=== PATIENT | female | born 1995 | race Caucasian/White ===

== ENCOUNTER 2019-05-24 17:17 | Emergency (ER) | payer OTHER ==
[~2019-05-24] VITALS: Ht 165.1 cm; Wt 94.5 kg
[2019-05-24 20:18] VITALS: BP 146/71
--- NOTE | 2019-05-25 09:17 | REP ---
REASON: Trauma. COMPARISON: None. FINDINGS: The compartments are symmetric and relatively well maintained. There is no acute fracture or destructive osseous lesion. Electronically Signed by Ernesto Aguilar DO 05/25/2019 09:24 A
--- NOTE | 2019-05-25 09:18 | REP ---
ANKLE: REASON: Status post twisting injury. COMPARISON: None. FINDINGS: No acute fracture or destructive osseous lesion. The mortise is intact. Electronically Signed by Ernesto Aguilar DO 05/25/2019 09:24 A
--- NOTE | 2019-05-25 09:18 | REP ---
REASON: Trauma. COMPARISON: None. FINDINGS: Five views of the ribs show no acute fracture or destructive osseous lesion. The accompanying frontal view of the chest shows no cardiomegaly, infiltrates, effusions or pneumothoraces. IMPRESSION: Negative rib series. Electronically Signed by Ernesto Aguilar DO 05/25/2019 09:24 A
--- NOTE | 2019-05-25 09:31 | REP ---
REASON: Pain after trauma. PRIORS: None. There is a mild dextroconvex lumbar curve. Vertebral body height is within normal limits. The disc spaces are mildly narrowed posteriorly at L4-5 and somewhat more universally at L5-S1. There is no spondylolysis or spondylolisthesis. Image quality is somewhat limited due to the patient's body habitus. Pedicles are intact bilaterally. IMPRESSION: Chronic changes, as described above. Electronically Signed by Ernesto Aguilar DO 05/25/2019 09:45 A
== END 2019-05-24 20:23 | disposition home or self-care (01) ==
LOC: M ED 17:17
DX: S93.432A Sprain of tibiofibular ligament of left ankle, initial encounter (principal); S20.212A Contusion of left front wall of thorax, initial encounter; S70.02XA Contusion of left hip, initial encounter; S80.02XA Contusion of left knee, initial encounter; W01.0XXA Fall on same level from slipping, tripping and stumbling without subsequent striking against object, initial encounter; Y92.129 Unspecified place in nursing home as the place of occurrence of the external cause; Y93.9 Activity, unspecified; Y99.0 Civilian activity done for income or pay

== ENCOUNTER 2019-07-02 06:12 | Emergency (ER) | payer OTHER, SELFPAY ==
[~2019-07-02] VITALS: Ht 165.1 cm; Wt 93.2 kg
[2019-07-02 06:13] VITALS: BP 138/73
== END 2019-07-02 06:45 | disposition home or self-care (01) ==
LOC: M ED 06:12
DX: B08.4 Enteroviral vesicular stomatitis with exanthem (principal); Z98.84 Bariatric surgery status

== ENCOUNTER 2019-07-06 11:55 | Emergency (ER) | payer SELFPAY ==
[~2019-07-06] VITALS: Ht 165.1 cm; Wt 98.8 kg
[2019-07-06 11:55] VITALS: BP 147/80
== END 2019-07-06 12:45 | disposition home or self-care (01) ==
LOC: M ED 11:55
DX: B08.4 Enteroviral vesicular stomatitis with exanthem (principal); Z98.84 Bariatric surgery status